=== PATIENT | female | born 1950 | race Caucasian/White ===

== ENCOUNTER 2019-11-15 14:12 | Emergency (ER) | payer MEDICARE, OTHER, SELFPAY ==
[2019-11-15 14:20] VITALS: BP 184/104; PULSE 90; RESP 16; TEMP 36.6; O2SAT 97; BMI 29.9
--- NOTE | 2019-11-15 14:24 | ED_ITS ---
HPI - Extremity Injury (Lower) General: Chief Complaint: Extremity Problem,Nontraumatic Stated Complaint: RIGHT LEG PAIN Time Seen by Provider: 11/15/19 14:18 Source: patient Mode of arrival: ambulatory History of Present Illness: HPI Narrative: Right leg pain Review of Systems General: Reports: 10 or more systems reviewed and unremarkable except in HPI and below Musc: Reports: extremity pain (right leg; right knee) PFSH ED PFSH: Social History Smoking and tobacco status: never smoked Physical Exam Const: COMMON NORMALS: no apparent distress, oriented x3, no limitations and alert GENERAL APPEARANCE: cooperative and comfortable ORIENTATION/CONSCIOUSNESS: Yes awake, Yes oriented to person, Yes oriented to place and Yes oriented to time HENMT: COMMON NORMALS: normocephalic, head/scalp atraumatic, external ears normal, EAC's normal, TM's normal bilaterally and external nose normal HEAD & SCALP: normal to inspection, normocephalic and atraumatic FACE & SINUS: normal facial exam, sinuses nontender and face symmetric NOSE: external nose normal, nares normal and no nasal discharge EXTERNAL EAR: Yes external ears normal EXTERNAL AUDITORY CANAL: EAC's normal TYMPANIC MEMBRANE: TM's normal bilaterally MOUTH: oral and palatal mucosa normal, lip normal and tongue normal THROAT: posterior oropharynx normal, tonsils normal and uvula midline Eye: COMMON NORMALS: PERRL, EOMs intact bilaterally and conjunctivae normal GENERAL EYE: normal appearance of both eyes and normal light reflex EYELID: eyelids normal CONJUNCTIVA: Yes conjunctivae normal PUPIL: Yes PERRL EOM: Yes EOM abnormal DIRECT OPHTHALMOSCOPY: Yes normal light reflex Neck/C-Spine: COMMON NORMALS: full ROM, no lymphadenopathy, supple, no meningeal signs, no JVD and thyroid normal GENERAL: Yes normal visual inspection THYROID: thyroid normal CERVICAL SPINE: Yes cervical ROM normal and Yes normal cervical lordosis Lymph: LYMPHATIC: no lymphadenopathy noted Chest: COMMONS NORMALS: inspection of chest normal and palpation of chest normal Resp: COMMON NORMALS: normal respiratory effort, no retractions and clear to auscultation bilaterally AUSCULTATION: clear to auscultation bilaterally Cardio: COMMON NORMALS: no JVD, regular rate, regular rhythm, S1 normal heart sound, S2 normal heart sound, no gallops, no clicks, no murmurs, no rub and peripheral pulses 2+ throughout RATE: regular rate RHYTHM: regular rhythm HEART SOUNDS: S1 normal and S2 normal PERIPHERAL PULSES: pulses 2+ throughout GI: COMMON NORMALS: normal to inspection, nondistended, normoactive bowel sounds, soft to palpation, non-tender and no masses PALPATION: Yes soft : COMMON NORMALS: Yes no CVA tenderness and Yes external appearance normal BLADDER/KIDNEY EXAM: Yes no CVA tenderness Back/Pelvis: COMMON NORMALS: no CVA tenderness, thoracic and lumbar spine normal to inspection, no thoracic nor lumbar tenderness and thoraco-lumbar ROM normal Extremity: COMMON NORMALS: normal to inspection, full ROM, normal capillary refill, no joint enlargement, no clubbing, cyanosis or edema, no calf tenderness and no pedal edema GENERAL: Yes normal exam except as noted RIGHT LOWER EXTREMITY: Yes knee joint (right knee pain; negative luis's sign ) Neuro: COMMON NORMALS: oriented x3, moves all extremities, no focal motor deficits, no sensory deficits noted and gait normal SENSORIUM/ORIENTATION: Yes alert, Yes oriented to person, Yes oriented to place and Yes oriented to time MENINGEAL SIGNS: Yes no meningeal signs Psych: COMMON NORMALS: mental status grossly normal, thought process normal, cooperative, affect normal, speech normal and activity/motor behavior normal SPEECH: Yes normal speech THOUGHT PROCESS: normal thought process Skin: COMMON NORMALS: no rashes or lesions noted, no wounds and skin turgor n ormal GENERAL SKIN EXAM: no rashes or lesions noted and turgor normal Course ED course: Pt presents to ER after positive DDimer test and pain in RLE and mild swelling. Reevaluation(s): Reevaluation #1: US negative DVT; will proceed with DC with MRI likely needed. Time: 15:32 Vital Signs: Vital signs: Vital Signs Temperature 97.8 F 11/15/19 14:20 Pulse Rate 90 11/15/19 14:20 Respiratory Rate 16 11/15/19 14:20 Blood Pressure 184/104 11/15/19 14:20 Pulse Oximetry 97 11/15/19 14:20 Discharge Plan Discharge Patient Disposition: Home, Self-Care Clinical Impression: Lower extremity pain Condition: Stable Prescriptions: No Action atorvastatin 80 mg tablet 80 mg PO DAILY RF: 0 magnesium oxide 400 mg magnesium tablet 400 mg PO DAILY RF: 0 tizanidine 2 mg tablet 2 - 4 mg PO DAILY PRN (Reason: Pain) RF: 0 hydrocodone-acetaminophen 5-325 mg tablet 1 tab PO Q4H PRN (Reason: Pain) RF: 0 prednisone 20 mg tablet See Rx Instructions .ROUTE .COMPLEX RF: 0 Referrals: Manuel Moore [Primary Care Provider] - Discharge Diet: Usual diet Discharge Activity: Increase activity as tolerated Activity Restrictions/Additional Instructions: Follow up with PCP; no blood clot noted. MRI likely necessary. Have ordered as outpatient per your PCP Coding Level of Care Code ED Rim Fire Charger Operator for Gilson Cohen
--- NOTE | 2019-11-15 14:36 | USCV_ITS ---
Anum Quinteros Age: 69 Gender: F : 1950 Exam Date: 11/15/2019 14:46 Ordering Phys: Iva Mason Technologist: Polo Kendrick [place] [facility] [place] Indication: RT LEG PAIN AND EDEMA HISTORY: Lower extremity pain. PROCEDURES: Venous duplex imaging was performed in only the right lower extremity. The following venous structures were evaluated: common femoral vein, profunda vein, proximal portion of the greater saphenous vein, superficial femoral vein, and the popliteal vein. In addition, the posterior tibial and peroneal trunk were evaluated. FINDINGS: Normal 2-D Doppler and augmentation and compressibility throughout the lower extremity venous structures. Additional imaging through the proximal calf veins also reveals no thrombus. Limited evaluation of the greater saphenous vein is patent with no thrombus. CONCLUSIONS No DVT right lower extremity. Dr. Mirella Montejo DO (Electronically Signed) Final Date: 15 Nov 2019 15:38 S
[2019-11-15 15:57] VITALS: BP 146/98; PULSE 85; RESP 16; O2SAT 97
--- NOTE | 2019-11-16 10:34 | DCPLANNER ---
Addendum entered by Neha Rodriguez 11/18/19 09:16: assisted living care manager did speak with Iva, she gave a nurse a verbal order for the MRI, which was written. assisted living care manager called patient and informed patient that an order was written and faxed to centralized scheduling. assisted living care manager will call for appointment information. Original Note: Patient called and spoke with case loader operator about getting an outpatient MRI ordered. Patient wanted the MRI ordered by physician that seen her in the ED, Iva Mason, she is not working in the ED today. assisted living care manager called the [facility] where she works and she is not working today, will be back tomorrow, 11.17.19. assisted living care manager will call provider tomorrow and ask provider if she wants to order an outpatient MRI for patient. assisted living care manager called patient and left a voicemail for patient stating that physician was not at work in clinic today, would be tomorrow and case loader operator would call provider tomorrow and ask about out patient MRI.
--- NOTE | 2019-11-22 14:44 | DCPLANNER ---
Patient has a follow up appointment scheduled for , December 01, 2019 at 2:30.
--- NOTE | 2019-12-23 08:30 | DCPLANNER ---
Patient attended appointment scheduled for 12.01.19 for an MRI.
== END 2019-11-15 15:52 | disposition home or self-care (01) ==
PROVIDERS: Emergency Provider Nurse Practitioner Family; PCP Family Medicine
DX: M79.604 Pain in right leg (principal)
CPT/HCPCS: 12345; 93971; 99281; 99282

== ENCOUNTER 2019-12-01 14:17 | Outpatient (CLI) | payer MEDICARE, OTHER, SELFPAY ==
--- NOTE | 2019-12-01 14:26 | MR_ITS ---
WS: [id number] MRI LEFT KNEE NONCONTRAST TECHNIQUE: Axial PD, coronal PD fat sat, coronal PD, sagittal PD, and sagittal PD fat-sat images obta ined. CLINICAL INFORMATION: BILATERAL KNEE PAIN COMPARISON: None. FINDINGS: Distal quadriceps and patella tendons are intact. Hypertrophic patella. ACL is somewhat thin but inta ct which may be due to prior injury. T2 signal abnormality. PCL is intact. Moderate narrowing of the medial and lateral joint compartments with meniscal thinning. Chronic appearing intrasubstance signal abnormality involving the medial and lateral meniscus. No acute appearing meniscal tears. Moderate chondromalacia patella. No subchondral edema. Medial and lateral collateral ligaments are in tact. Normal popliteal fossa. Small amount of edema in the lateral tibial plateau with joint space na rrowing. Grade III chondromalacia involving the medial and lateral joint compartments. MR/MR knee LT wo con* [id number] IMPRESSION: 1. ACL is somewhat diminutive but appears intact. This is likely due to chroni c injury. Normal PCL. 2. Chronic thinning of the medial and lateral joint compartments with chronic appearing intrasubstance signal abnormality. No acute meniscal tears. 3. Moderate chondromalacia patella. 4. Small amount of subchondral edema in the lateral tibial plateau with joint space narrowing.
--- NOTE | 2019-12-01 14:26 | MR_ITS ---
WS: [id number] MRI RIGHT KNEE NONCONTRAST TECHNIQUE: Axial PD, coronal PD fat sat, coronal PD, sagittal PD, and sagittal PD fat-sat images obta ined. CLINICAL INFORMATION: BILATERAL KNEE PAIN COMPARISON: None. FINDINGS: ACL is normal in appearance. PCL is normal. Distal quadriceps and patella tendons are intact. Slightl y hypertrophic patella. Loss of the medial joint space and subchondral edema in the tibial plateau. C hronic appearing tear along the root of the medial meniscus with blunting of the anterior and posteri or horns. Chronic intrasubstance signal abnormality in the residual anterior and posterior horns. Chr onic thinning of the lateral meniscus which is intact. Hypertrophic changes along the joint line. Moderate chondromalacia involving the medial and lateral j oint compartments. Moderate chondromalacia patella. Normal medial and lateral patellar retinaculum. N ormal popliteal fossa. MR/MR knee RT wo con* [id number] IMPRESSION: 1. Anterior and posterior cruciate ligaments are intact. 2. Narrowing of the medial joint compartment with meniscal tear along the meni scal root with T2 signal abnormality. Subchondral edema in the medial tibial pl ateau with loss of joint space. 3. Lateral meniscus is better preserved. 4. Moderate chondromalacia patella. 5. Hypertrophic changes along the joint line with moderate to advanced chondro malacia involving the medial and lateral joint compartments.
== END 2019-12-01 14:18 | disposition home or self-care (01) ==
LOC: RADWPI 14:24
PROVIDERS: PCP Family Medicine; Visit Provider Nurse Practitioner Family
DX: M25.561 Pain in right knee (principal); M25.562 Pain in left knee; M22.42 Chondromalacia patellae, left knee; M22.41 Chondromalacia patellae, right knee
CPT/HCPCS: 73721

== ENCOUNTER 2022-01-13 11:06 | Emergency (ER) | payer MEDICARE, SELFPAY ==
[2022-01-13 11:17] VITALS: BP 173/88; PULSE 92; RESP 18; TEMP 37.1; O2SAT 97; BMI 31.6
--- NOTE | 2022-01-13 13:06 | CT_ITS ---
WS: [id number] CT HEAD NONCONTRAST HISTORY: Syncopal episode and hit head TECHNIQUE: Contiguous axial imaging performed through the brain in 2.5 mm imaging. Bone and soft tiss ue windows. Sagittal and coronal reformats reviewed. All CT scans at [facility] use at least one of these dose optimization techniques: automated exposure control; mA and/or kV adjustment per pa tient size (includes targeted exams where dose is matched to clinical indication); or iterative recon struction. DLP: 1020.35 mGy.cm COMPARISON: None available. No acute intracranial hemorrhage, midline shift or mass effect. Mild atrophy and small vessel ischemic disease. Bilateral lacunar infarcts in the basal ganglia. Ventricles: Normal size with no hydrocephalus. No inferior displacement of cerebellar tonsils. Paranasal sinuses: As visualized are clear. Mastoid air cells: Well pneumatized. Calvarium and scalp: Skull is intact with no soft tissue edema or swelling. CT/CT head wo con* [id number] IMPRESSION: 1. No acute intracranial hemorrhage or edema. 2. Mild small vessel ischemic disease. 3. No skull fracture.
--- NOTE | 2022-01-13 13:06 | XRR_ITS ---
PROCEDURE INFORMATION: Exam: XR Chest Exam date and time: 01/13/2022 1:31 PM Age: 71 years old Clinical indication: Other: Syncopal episode TECHNIQUE: Imaging protocol: Radiologic exam of the chest. Views: 1 view. COMPARISON: No relevant prior studies available. FINDINGS: Lungs: Unremarkable. No consolidation. Pleural spaces: Unremarkable. No pleural effusion. No pneumothorax. Heart/Mediastinum: Unremarkable. No cardiomegaly. Bones/joints: Unremarkable. XR/XR chest 1V portable [id number] IMPRESSION: No acute findings.
--- NOTE | 2022-01-13 13:06 | ECG_ITS ---
[facility] Test Date: 2022-01-13 Pat Name: Anum Quinteros Department: Room: Gender: Female Gift Manager: : 1950 Requested By: Josh Yadav Order Number: [id number] Charles MD: Tru Molina M.D. Measurements Intervals [place] Rate: 86 P: 61 MN: 160 QRS: -29 QRSD: 101 T: 43 QT: 363 QTc: 436 Interpretive Statements SINUS RHYTHM LOW QRS VOLTAGE IN PRECORDIAL LEADS [QRS DEFLECTION < 1.0 mV IN CHEST LEADS] INCOMPLETE RIGHT BUNDLE BRANCH BLOCK [90+ ms QRS DURATION, TERMINAL R IN V1/V2, 40+ ms S IN I/aVL/V4/V5/V6] SEPTAL MYOCARDIAL INFARCTION , OF INDETERMINATE AGE [40+ ms Q WAVE IN V1/V2] No previous ECG available for comparison Electronically Signed On 01-13-2022 18:21:05 CDT by Tru Molina M.D. [id number] f
--- NOTE | 2022-01-13 13:30 | ED_ITS ---
HPI - Fall General: Chief Complaint: Fall Stated Complaint: Fell, head injury Time Seen by Provider: 01/13/22 13:04 Source: patient Mode of arrival: ambulatory Limitations: no limitations History of Present Illness: 71-year-old female presents to the emergency room after a fall 3 days ago. Patient hit her head on a cabinet there was no loss of consciousness she is not on any anticoagulants. She denies any other injuries. MD complaint: fall Onset (ago): day(s) (3) Fall from: standing Fall witnessed: no Place fall occurred: home Loss of consciousness: Yes Prolonged down time: no Symptoms prior to fall: lightheadedness and dizziness Location of injury: head and neck Associated symptoms-after fall: Denies abdominal pain or chest pain Review of Systems Const: Denies: fever(s), chills, body aches, change in appetite, fatigue or malaise ENMT: Denies: throat pain, ear or mastoid pain, nasal discharge or nasal gerardo estion Card: Denies: chest pain, palpitations, irregular heart rhythm, edema, dyspnea on exertion or orthopnea Resp: Denies: dyspnea, productive cough or non-productive cough GI: Denies: abdominal pain, nausea, vomiting, hematemesis, coffee ground emesis, diarrhea, constipation, bloating, hematochezia or melena : Denies: flank pain, difficulty voiding, dysuria, urinary frequency or urinary urgency Skin/Breast: Denies: rash or pruritus [facility] ED PFSH: Medical History (Updated 01/23/22 @ 09:19 by Hoang Perera DO) Hyperlipidemia Hypertension Social History Smoking and tobacco status: never smoked Physical Exam Const: GENERAL APPEARANCE: cooperative and comfortable ORIENTATION/CONSCIO USNESS: Yes awake, Yes oriented to person, Yes oriented to place and Yes oriented to time HENMT: COMMON NORMALS: normocephalic, atraumatic and hearing grossly normal bilaterally HEAD & SCALP: normocephalic and atraumatic Neck/C-Spine: COMMON NORMALS: no JVD Resp: COMMON NORMALS: normal respiratory effort, No retractions, No use of accessory muscles and clear to auscultation bilaterally AUSCULTATION: clear to auscultation bilaterally Cardio: COMMON NORMALS: no JVD, regular rate, regular rhythm and No murmurs present (Cardio) RATE: regular rate RHYTHM: regular rhythm GI: COMMON NORMALS: Soft to palpation and No hepatosplenomegaly present AUSCULTATION: Yes normoactive bowel sounds PALPATION: Yes Soft to palpation, No Tenderness to palpation present (GI), No Guarding due to palpation present (GI) and Yes No hepatosplenomegaly present Extremity: COMMON NORMALS: normal to inspection, capillary refill normal, no clubbing, cyanosis or edema, no calf tenderness and no pedal edema Neuro: SENSORIUM/ORIENTATION: Yes oriented to person, Yes oriented to place and Yes oriented to time Skin: COMMON NORMALS: no rashes or lesions noted GENERAL SKIN EXAM: no rashes or lesions noted Course Vital Signs: Vital signs: Vital Signs Temperature 98.7 F 01/13/22 11:17 Pulse Rate 90 01/13/22 17:02 Respiratory Rate 17 01/13/22 17:02 Blood Pressure 160/105 01/13/22 15:25 Pulse Oximetry 96 01/13/22 17:02 MDM - Fall Medical Decision Making Labs and imaging reviewed we will discharge patient home. Started on amlodipine set up for outpatient echocardiogram and 48-hour Holter monitor return if is further problems. Medical Records I reviewed the patient's medical records. Lab Data I reviewed the patient's lab results. : 01/13/22 14:00 01/13/22 14:00 Radiology Impressions Chest X-Ray 01/13/22 13:06 IMPRESSION: No acute findings. Head CT 01/13/22 13:06 IMPRESSION: 1. No acute intracranial hemorrhage or edema. 2. Mild small vessel ischemic disease. 3. No skull fracture. Laboratory Results WBC 7.6 10^3/uL (4.0-10.0) 01/13/22 14:00 RBC 4.90 10^6/uL (4.1-5.3) 01/13/22 14:00 Hgb 13.8 g/dL (11.5-15.3) 01/13/22 14:00 Hct 41.2 % (37.0-47.0) 01/13/22 14:00 MCV 84.1 fl (81-99) 01/13/22 14:00 MCH 28.2 pg (28.0-34.0) 01/13/22 14:00 MCHC 33.5 g/dL (30.0-36.0) 01/13/22 14:00 RDW 13.5 % (12.1-15.1) 01/13/22 14:00 Plt Count 240 10^3/cmm (130-400) 01/13/22 14:00 MPV 11.4 fL (7.4-10.4) H 01/13/22 14:00 Neut % (Auto) 67.7 % 01/13/22 14:00 Lymph % (Auto) 25.4 % 01/13/22 14:00 Becker % (Auto) 5.4 % 01/13/22 14:00 Eos % (Auto) 0.8 % 01/13/22 14:00 Baso % (Auto) 0.4 % 01/13/22 14:00 Neut # (Auto) 5.15 10^3/uL (1.8-7.7) 01/13/22 14:00 Lymph # (Auto) 1.9 10^3/uL (0.8-4.8) 01/13/22 14:00 Becker # (Auto) 0.4 10^3/uL (0.2-0.9) 01/13/22 14:00 Eos # (Auto) 0.1 10^3/uL (0.0-0.8) 01/13/22 14:00 Baso # (Auto) 0.0 10^3/uL (0.0-0.1) 01/13/22 14:00 Nucleated RBC % (auto) 0 % 01/13/22 14:00 Nucleated RBCs # 0.0 /100WBC 01/13/22 14:00 Sodium 140 mmol/L (136-145) 01/13/22 14:00 Potassium 4.1 mmol/L (3.5-5.1) 01/13/22 14:00 Chloride 102 mmol/L (98-107) 01/13/22 14:00 Carbon Dioxide 25 mmol/L (22-29) 01/13/22 14:00 Anion Gap 17.1 (5-19) 01/13/22 14:00 BUN 7 mg/dL (8-23) L 01/13/22 14:00 Creatinine 0.6 mg/dL (0.5-0.9) 01/13/22 14:00 GFR Calculation 99.1 mL/min (90-130) 01/13/22 14:00 Glucose 105 mg/dL (65-115) 01/13/22 14:00 Calculated Osmolality 288 mOsm/kg (285-295) 01/13/22 14:00 Calcium 9.4 mg/dL (8.5-10.5) 01/13/22 14:00 Total Bilirubin 0.3 mg/dL (0.15-1.2) 01/13/22 14:00 AST 24 U/L (0-32) 01/13/22 14:00 ALT 18 U/L (0-33) 01/13/22 14:00 Alkaline Phosphatase 135 IU/L (35-105) H 01/13/22 14:00 Troponin T Baseline 6 ng/L (0-10) 01/13/22 14:00 Troponin T 120 Minute 6.00 ng/L (0-10) 01/13/22 16:01 Delta Troponin T 0 ABS# (0-10) 01/13/22 16:01 Total Protein 8.1 g/dL (6.6-8.7) 01/13/22 14:00 Albumin 4.6 g/dL (3.5-5.2) 01/13/22 14:00 Globulin 3.5 g/dL (1.3-4.6) 01/13/22 14:00 Lipase 28 U/L (13-60) 01/13/22 14:00 Urine Color Straw (Yellow) 01/13/22 15:07 Urine Appearance Clear (CLEAR) 01/13/22 15:07 Urine pH 7 (5-7) 01/13/22 15:07 Ur Specific [place] 1.005 (1.005-1.030) 01/13/22 15:07 Urine Protein Neg (Negative) 01/13/22 15:07 Urine Glucose (UA) Norm (Normal) 01/13/22 15:07 Urine Ketones Negative (Negative) 01/13/22 15:07 Urine Blood Neg (Negative) 01/13/22 15:07 Urine Nitrate Negative (Negative) 01/13/22 15:07 Urine Bilirubin Neg (Negative) 01/13/22 15:07 Urine Urobilinogen Norm mg/dL (Negative) 01/13/22 15:07 Ur Leukocyte Esterase Negative (Negative) 01/13/22 15:07 Discharge Plan Discharge Patient Disposition: Home Clinical Impression: Syncope, Neck pain, Fall Condition: Stable Prescriptions: New amlodipine 5 mg tablet 5 mg PO DAILY Qty: 30 0RF diclofenac sodium 75 mg tablet,delayed release (DR/EC) 75 mg PO Q12H PRN (Reason: pain) Qty: 20 0RF No Action magnesium oxide 400 mg magnesium tablet 400 mg PO QPM 0RF tizanidine 2 mg tablet 2 - 4 mg PO DAILY PRN (Reason: Pain) 0RF hydrocodone-acetaminophen 5-325 mg tablet 1 tab PO Q4H PRN (Reason: Pain) 0RF Aspir-81 81 mg Tablet,Delayed Release (Dr/Ec) 81 mg PO QPM 0RF rosuvastatin 40 mg tablet 40 mg PO QPM 0RF Discharge Orders: Discharge ED (Routine); Ordered 01/13/22 Ordered By: Hoang Perera Referrals: Manuel Moore [Primary Care Provider] - Discharge Diet: Usual diet Discharge Activity: Resume usual activity Patient Instructions: Opioid Safety Activity Restrictions/Additional Instructions: promotions firm accounts manager will make arrangements for you to have a outpatient echocardiogram and 48-hour Holter monitor. Use the diclofenac as needed. Take amlodipine daily you are given 1 dose here to start the prescription given to you today tomorrow morning. Follow-up with your primary care doctor in 1 week to reevaluate your blood pressure. Coding Level of Care Code ED Inside Polisher for Gilson Cohen
--- NOTE | 2022-01-13 13:45 | PC.NURSE ---
PT PLACED ON CONTINUOUS NIBP. SPO2, AND CM
[2022-01-13 13:56] VITALS: BP 167/115; PULSE 89; RESP 18; O2SAT 93
[2022-01-13 14:10] LABS: Basophils % 0.4 %; Eosinophils # 0.1 10^3/uL (0.0-0.8); Eosinophils % 0.8 %; Hematocrit 41.2 % (37.0-47.0); Hemoglobin 13.8 g/dL (11.5-15.3); Lymphocytes # 1.9 10^3/uL (0.8-4.8); Lymphocytes % 25.4 %; Mean Corpuscular HGB Conc 33.5 g/dL (30.0-36.0); Mean Corpuscular Hemoglobin 28.2 pg (28.0-34.0); Mean Corpuscular Volume 84.1 fl (81-99); Mean Platelet Volume 11.4 fL (7.4-10.4); Monocytes # 0.4 10^3/uL (0.2-0.9); Monocytes % 5.4 %; Neutrophils # 5.15 10^3/uL (1.8-7.7); Neutrophils % 67.7 %; Nucleated Red Blood Cells % 0 %; Platelet Count 240 10^3/cmm (130-400); Red Cell Distribution Width 13.5 % (12.1-15.1); White Blood Count 7.6 10^3/uL (4.0-10.0)
[2022-01-13 14:40] LABS: Alanine Aminotransferase 18 U/L (0-33); Albumin Level 4.6 g/dL (3.5-5.2); Alkaline Phosphatase 135 IU/L (35-105); Anion Gap 17.1 (5-19); Aspartate Amino Transferase 24 U/L (0-32); Blood Urea Nitrogen 7 mg/dL (8-23); Calcium 9.4 mg/dL (8.5-10.5); Carbon Dioxide 25 mmol/L (22-29); Chloride 102 mmol/L (98-107); Globulin 3.5 g/dL (1.3-4.6); Glomerular Filtration Rate 99.1 mL/min (90-130); Glucose 105 mg/dL (65-115); Lipase 28 U/L (13-60); Osmolality Calculated 288 mOsm/kg (285-295); Potassium 4.1 mmol/L (3.5-5.1); Sodium 140 mmol/L (136-145); Total Bilirubin 0.3 mg/dL (0.15-1.2); Total Protein 8.1 g/dL (6.6-8.7)
--- NOTE | 2022-01-13 15:06 | ECG_ITS ---
[facility] Test Date: 2022-01-13 Pat Name: Anum Quinteros Department: Room: Gender: Female Ruby On Rails Engineer: : 1950 Requested By: Josh Yadav Order Number: [id number] Charles MD: Tru Molina M.D. Measurements Intervals [place] Rate: 84 P: 71 GA: 154 QRS: -16 QRSD: 110 T: 61 QT: 383 QTc: 455 Interpretive Statements SINUS RHYTHM LOW QRS VOLTAGE IN PRECORDIAL LEADS [QRS DEFLECTION < 1.0 mV IN CHEST LEADS] INCOMPLETE RIGHT BUNDLE BRANCH BLOCK [90+ ms QRS DURATION, TERMINAL R IN V1/V2, 40+ ms S IN I/aVL/V4/V5/V6] MODERATE ST DEPRESSION [0.05+ mV ST DEPRESSION] No previous ECG available for comparison Electronically Signed On 01-13-2022 18:23:10 CDT by Tru Molina M.D. [id number]
[2022-01-13 15:12] LABS: Troponin(5th) Baseline 6 ng/L (0-10)
[2022-01-13 15:17] LABS: Add Urine Microscopic? NO; Charge for UA Resulting for Rev
[2022-01-13 15:23] LABS: Urine Color Straw (Yellow)
[2022-01-13 15:24] LABS: Bilirubin Urine Neg (Negative); Blood Urine Neg (Negative); Glucose Urine UA Norm (Normal); Ketones Urine Negative (Negative); Leukocyte Esterase Urine Negative (Negative); Nitrate Urine Negative (Negative); Protein Urine Neg (Negative); Specific Gravity, Urine 1.005 (1.005-1.030); Urine Appearance Clear (CLEAR); Urobilinogen Urine Norm (Negative); pH Urine 7 (5-7)
[2022-01-13 15:25] VITALS: BP 160/105; PULSE 83; RESP 17; O2SAT 96
[2022-01-13] MEDS: amlodipine 5 mg Tablet PO (15:25)
[2022-01-13] MEDS: hyDRALAzine 20 mg/mL INJ 1 mL 10 MG IVP (15:25)
[2022-01-13 17:02] VITALS: PULSE 90; RESP 17; O2SAT 96
[2022-01-13 17:08] LABS: Troponin 5 2HR Delta 0 ABS# (0-10)
--- NOTE | 2022-01-14 14:54 | DCPLANNER ---
Addendum entered by Neha Rodriguez 01/27/22 17:51: Patient had a 48 hour halter monitor scheduled for 01.21.22 at heart care - patient did attend appointment. Original Note: physical therapist center manager had message to schedule an outpatient echo cardiogram, and a 48 hour halter monitor. physical therapist center manager faxed signed order to centralized scheduling and heart care, who will call patient with appointment information.
== END 2022-01-13 17:04 | disposition home or self-care (01) ==
PROVIDERS: Emergency Medicine; Physician Assistant; Emergency Provider Family Medicine; PCP Family Medicine
DX: M54.2 Cervicalgia (principal); R55 Syncope and collapse; W18.30XA Fall on same level, unspecified, initial encounter; Z79.82 Long term (current) use of aspirin; E78.5 Hyperlipidemia, unspecified; I10 Essential (primary) hypertension
CPT/HCPCS: 36415; 70450; 71045; 80053; 81003; 83690; 84484; 85025; 93005; 96374; 99285; J0360

== ENCOUNTER → 2022-01-21 11:17 | Outpatient (BNVA) | payer MEDICARE, SELFPAY | PROVIDERS: PCP Family Medicine | DX: R55 Syncope and collapse (principal); I49.1 Atrial premature depolarization; I49.3 Ventricular premature depolarization | CPT/HCPCS: 93225 ==